=== PATIENT | female | born 1985 | race Two or more races ===

== ENCOUNTER 2020-07-11 13:02 | Inpatient (IN) | payer OTHER ==
[2020-07-11 13:52] VITALS: BMI 37.9
[2020-07-11] MEDS ORDERED: AMPICILLIN SODIUM 2 GM VIAL ONE (14:06)
[2020-07-11] MEDS ORDERED: AMPICILLIN - 2 GM in SODIUM CHLORIDE 100 ML IVPB ONE (14:15)
[2020-07-11 14:21] LABS: BASO % 0.3 % (0-2.0); EOS % 0.8 % (0-4.5); HEMATOCRIT 32.9 % (32.4-45.2); HEMOGLOBIN 11.2 GM/dL (10.7-15.3); LYMPH % 22.3 % (8-40); MCH 31.3 pg (25.7-33.7); MCHC 33.9 g/dl (32.0-36.0); MEAN CELL VOLUME 92.2 fl (80-96); MEAN PLT VOLUME 7.7 fl (7.5-11.1); MONO % 8.5 % (3.8-10.2); NEUT % 68.1 % (42.8-82.8); PLATELET COUNT 242 K/MM3 (134-434); RBC 3.57 M/mm3 (3.60-5.2); RDW 13.1 % (11.6-15.6); WHITE BLOOD COUNT 7.3 K/mm3 (4.0-10.0)
[2020-07-11 14:28] LABS: INR 0.96 (0.83-1.09); PROTHROMBIN TIME (PATIENT) 11.8 SEC (9.7-13.0)
[2020-07-11 14:43] LABS: POTASSIUM 4.1 mmol/L (3.5-5.1)
[2020-07-11 14:44] LABS: CALCIUM 8.7 mg/dL (8.5-10.1)
[2020-07-11] MEDS ORDERED: DEXTROSE 5%-LACTATED RINGERS 1,000 ML IV SCH (14:45)
[2020-07-11 14:48] LABS: CREATININE 0.7 mg/dL (0.55-1.3)
[2020-07-11] MEDS ORDERED: OXYTOCIN 30 UNITS in 0.9% NS 30 UNIT/500 ML INFUS.BAG IVPB ONE (15:28)
[2020-07-11] MEDS ORDERED: OXYTOCIN 30 UNITS in 0.9% NS 30 UNIT/500 ML INFUS.BAG IVPB SCH (16:00)
[2020-07-11] MEDS ORDERED: CITRIC ACID/SODIUM CITRATE 30 ML UNIT-DOSE CUP PO ONE (16:30)
[2020-07-11] MEDS ORDERED: AMPICILLIN SODIUM 1 GM VIAL ONE ×2 (18:22→22:04)
[2020-07-11] MEDS: AMPICILLIN - 1 GM in SODIUM CHLORIDE 100 ML IVPB SCH ×2 (18:25→22:15)
[2020-07-11] MEDS ORDERED: ELECTROLYTE-148 SOLN 500 ML IV ONE (21:20)
[2020-07-11] MEDS ORDERED: BUPIVACAINE HCL/PF 0.25% (2.5MG/ML) 10 ML VIAL ONE (21:36)
[2020-07-11] MEDS ORDERED: PCA PUMP NR ONE (21:40)
[2020-07-11] MEDS ORDERED: FENTANYL/BUPIVACAINE/NS/PF - PCEA - 50 ML DISP.SYRIN EP ONE (21:40)
[2020-07-11] MEDS ORDERED: NALOXONE HCL 0.4 MG/ML VIAL IVPUSH PRN (21:44)
[2020-07-11] MEDS ORDERED: FENTANYL/BUPIVACAINE/NS/PF - PCEA - 50 ML DISP.SYRIN EP SCH (21:45)
[2020-07-11] MEDS ORDERED: ELECTROLYTE-148 SOLN 1,000 ML IV SCH (21:50)
[2020-07-12] MEDS ORDERED: FENTANYL/BUPIVACAINE/NS/PF - PCEA - 50 ML DISP.SYRIN EP ONE (01:22)
[2020-07-12] MEDS ORDERED: AMPICILLIN SODIUM 1 GM VIAL ONE (01:27)
[2020-07-12] MEDS: AMPICILLIN - 1 GM in SODIUM CHLORIDE 100 ML IVPB SCH (02:15)
[2020-07-12] MEDS ORDERED: OXYTOCIN 20 UNITS in 0.9% NS 20 UNIT/1,000 ML INFUS.BAG IV ONE (02:33)
[2020-07-12] MEDS ORDERED: BISACODYL 10 MG SUPP.RECT RC PRN (03:10)
[2020-07-12] MEDS ORDERED: WITCH HAZEL 50% (TUCKS) 40 PAD/JAR PAD TP PRN (03:10)
[2020-07-12] MEDS ORDERED: BENZOCAINE 28 GM HEMORRHOIDAL OINTMENT TP PRN (03:10)
[2020-07-12] MEDS ORDERED: oxyCODONE HCL 5 MG TABLET PO PRN (03:10)
[2020-07-12] MEDS ORDERED: METHYLERGONOVINE MALEATE 0.2 MG/1 ML AMP IM PRN (03:10)
[2020-07-12] MEDS ORDERED: BENZOCAINE 20% 57 GM BOTTLE TP PRN (03:10)
[2020-07-12] MEDS ORDERED: OXYTOCIN 20 UNITS in 0.9% NS 20 UNIT/1,000 ML INFUS.BAG IV SCH (03:15)
[2020-07-12] MEDS: ACETAMINOPHEN 325 MG TABLET (FP) PO PRN ×4 (06:21→22:38)
[2020-07-12] MEDS: IBUPROFEN 600 MG TABLET (FP) PO PRN ×4 (06:22→22:37)
[2020-07-12] MEDS ORDERED: FLU VACCINE (FLULAVAL) PF 60 MCG/0.5 ML SYRINGE 2020-2021 IM ONE (10:00)
[2020-07-12] MEDS ORDERED: DIPHTH,PERTUSS(ACELL),TET 0.5 ML DISP.SYRIN IM ONE (10:00)
[2020-07-12] MEDS: PRENATAL VITAMINS W/ FOLIC ACID TABLET (FP) PO SCH (10:07)
[2020-07-13 02:30] VITALS: TEMP 98.1
[2020-07-13 08:53] LABS: BASO % 0.5 % (0-2.0); EOS % 1.2 % (0-4.5); HEMATOCRIT 28.1 % (32.4-45.2); HEMOGLOBIN 9.6 GM/dL (10.7-15.3); MCH 32.1 pg (25.7-33.7); MCHC 34.3 g/dl (32.0-36.0); MEAN CELL VOLUME 93.3 fl (80-96); MEAN PLT VOLUME 7.5 fl (7.5-11.1); MONO % 8.3 % (3.8-10.2); PLATELET COUNT 186 K/MM3 (134-434); RBC 3.01 M/mm3 (3.60-5.2); RDW 13.4 % (11.6-15.6)
[2020-07-13] MEDS: IBUPROFEN 600 MG TABLET (FP) PO PRN (09:33)
[2020-07-13] MEDS: PRENATAL VITAMINS W/ FOLIC ACID TABLET (FP) PO SCH (09:33)
[2020-07-13] MEDS: ACETAMINOPHEN 325 MG TABLET (FP) PO PRN (09:33)
[2020-07-13 13:14] VITALS: BP 115/62; PULSE 71
[2020-07-13] MEDS ORDERED: SENNOSIDES/DOCUSATE COMBO (SENNA PLUS) TABLET (UD) PO PRN (22:00)
== END 2020-07-13 19:05 | disposition home or self-care (01) | DRG 560 ==
LOC: JLDR 13:02 → J3W 07-12 05:50
PROVIDERS: ADMIT Obstetrics & Gynecology; ATTEND Obstetrics & Gynecology
PROC: 10907ZC Drainage of Amniotic Fluid, Therapeutic from Products of Conception, Via Natural or Artificial Opening (ICD-10-PCS; 2020-07-11)
PROC: 10E0XZZ Delivery of Products of Conception, External Approach (ICD-10-PCS; principal; 2020-07-12)
PROC: 0W8NXZZ Division of Female Perineum, External Approach (ICD-10-PCS; 2020-07-12)
DX: O41.03X0 Oligohydramnios, third trimester, not applicable or unspecified (principal); O99.824 Streptococcus B carrier state complicating childbirth; Z3A.39 39 weeks gestation of pregnancy; Z37.0 Single live birth; Z86.19 Personal history of other infectious and parasitic diseases
CPT/HCPCS: 36415; 59409; 80048; 85025; 85610; 85730; 86780; 86850; 86900; 86901; 87389; 90715; C9803; G0008; Q2036; U0003

== ENCOUNTER 2024-07-09 13:52 | Inpatient (IN) | payer OTHER ==
[2024-07-09 14:17] VITALS: BMI 33.9
[2024-07-09] MEDS ORDERED: POLYETHYLENE GLYCOL (HEALTHYLAX) 3350 17 GM PACKET PO PRN (16:25)
[2024-07-09] MEDS ORDERED: BENZONATATE 200 MG CAPSULE PO PRN (16:25)
[2024-07-09] MEDS ORDERED: guaiFENesin 600 MG TABLET.ER (FP) PO PRN (16:25)
[2024-07-09] MEDS ORDERED: IBUPROFEN 600 MG TABLET (FP) PO PRN (16:25)
[2024-07-09] MEDS ORDERED: BISMUTH SUBSALICYLATE 524 MG/30 ML PO PRN (16:25)
[2024-07-09] MEDS ORDERED: DICYCLOMINE HCL 10 MG CAPSULE PO PRN (16:25)
[2024-07-09] MEDS ORDERED: ONDANSETRON *ODT* 4 MG TABLET SL PRN (16:25)
[2024-07-09] MEDS ORDERED: IBUPROFEN 400 MG TABLET (FP) PO PRN (16:25)
[2024-07-09] MEDS ORDERED: MAG HYDROX/AL HYDROX/SIMETH 30 ML UNIT-DOSE CUP PO PRN (16:25)
[2024-07-09] MEDS ORDERED: LOPERAMIDE HCL 2 MG CAPSULE PO PRN (16:25)
[2024-07-09] MEDS ORDERED: BENZOCAINE/MENTHOL (CHLORASEPTIC ) LOZENGE MM PRN (16:25)
[2024-07-09] MEDS ORDERED: NALOXONE (NARCAN) HCL 4 MG/0.1 ML SPRAY NS PRN (16:25)
[2024-07-09] MEDS: chlordiazePOXIDE HCL 25 MG CAPSULE PO PRN (17:49)
[2024-07-09] MEDS: ACETAMINOPHEN 325 MG TABLET (FP) PO PRN (17:50)
[2024-07-09] MEDS: hydrOXYzine PAMOATE 25 MG CAPSULE (FP) PO PRN (18:32)
[2024-07-09] MEDS: METHOCARBAMOL 500 MG TABLET PO PRN (18:32)
[2024-07-09] MEDS: MELATONIN 5 MG TABLETS PO SCH (22:10)
[2024-07-09] MEDS: THIAMINE 100 MG TABLET PO SCH (22:11)
[2024-07-09] MEDS: chlordiazePOXIDE HCL 25 MG CAPSULE PO SCH (22:11)
[2024-07-10] MEDS: PRENATAL VITAMINS W/ FOLIC ACID TABLET (FP) PO SCH (10:23)
[2024-07-10] MEDS: SERTRALINE HCL 50 MG TABLET (FP) PO SCH (10:23)
[2024-07-10] MEDS ORDERED: amLODIPine BESYLATE 5 MG TABLET (FP) PO SCH (11:45)
[2024-07-10] MEDS: propRANOLol HCL 10 MG TABLET PO SCH (13:31)
[2024-07-10 14:18] LABS: HEMATOCRIT 36.8 % (32.4-45.2); HEMOGLOBIN 12.5 GM/dL (10.7-15.3); MCH 31.4 pg (25.7-33.7); MCHC 33.9 g/dl (32.0-36.0); MEAN CELL VOLUME 92.8 fl (80-96); PLATELET COUNT 219 10^3/uL (134-434); RBC 3.97 M/mm3 (3.60-5.2); RDW 15.6 % (11.6-15.6); WHITE BLOOD COUNT 5.3 K/mm3 (4.0-10.0)
[2024-07-10 15:01] LABS: CHLORIDE 105 mmol/L (98-107); SODIUM 137 mmol/L (136-145)
[2024-07-10 15:14] LABS: ANION GAP 8 mmol/L (4-13); BLOOD UREA NITROGEN 12.9 mg/dL (7-18); CALCIUM 9.7 mg/dL (8.5-10.1); CO2 24 mmol/L (21-32); GLUCOSE,RANDOM 109 mg/dL (74-106)
[2024-07-10 15:15] LABS: ALBUMIN 3.6 g/dl (3.4-5.0)
[2024-07-10 15:16] LABS: SGPT/ALT 81 U/L (13-61)
[2024-07-10 15:17] LABS: ALK PHOS 93 U/L (45-117); CREATININE 0.8 mg/dL (0.55-1.3); SGOT/AST 49 U/L (15-37)
[2024-07-10 15:18] LABS: BILIRUBIN,TOTAL 0.7 mg/dL (0.2-1); TOT PROT 7.5 g/dl (6.4-8.2)
[2024-07-11] MEDS: chlordiazePOXIDE HCL 25 MG CAPSULE PO SCH (05:44)
[2024-07-11] MEDS: MAGNESIUM HYDROX 2400MG/30ML ORAL SUSPENSION 30 ML CUP PO PRN (10:18)
[2024-07-11] MEDS: DOCUSATE SODIUM 100 MG CAPSULE (FP) PO SCH (14:02)
[2024-07-11] MEDS: SENNOSIDES 8.6MG TABLET (FP) PO SCH (22:33)
[2024-07-12] MEDS ORDERED: chlordiazePOXIDE HCL 10 MG CAPSULE PO PRN
[2024-07-12] MEDS: chlordiazePOXIDE HCL 10 MG CAPSULE PO SCH (05:55)
[2024-07-12] MEDS: BISACODYL 5 MG TABLET.DR (FP) PO ONE (12:05)
[2024-07-12] MEDS: MINERAL OIL ENEMA 133 ML ENEMA RC ONE (12:05)
[2024-07-13] MEDS: chlordiazePOXIDE HCL 10 MG CAPSULE PO SCH (05:56)
[2024-07-14] MEDS: chlordiazePOXIDE HCL 10 MG CAPSULE PO ONE (05:55)
[2024-07-14 09:53] VITALS: BP 127/71; PULSE 95; RESP 17; TEMP 97.8
[2024-07-14] MEDS: NALOXONE (NYS OPIOID OVERDOSE PROGRAM) 4 MG/0.1 ML SPRAY NS SCH (12:00)
== END 2024-07-14 11:30 | disposition home or self-care (01) | DRG 774 ==
LOC: YASAS 13:52 → Y6N 16:45
PROVIDERS: ADMIT Allergy & Immunology; ATTEND Surgery
PROC: HZ2ZZZZ Detoxification Services for Substance Abuse Treatment (ICD-10-PCS; principal; 2024-07-09)
DX: F10.230 Alcohol dependence with withdrawal, uncomplicated (principal); F14.20 Cocaine dependence, uncomplicated; F12.20 Cannabis dependence, uncomplicated; F19.282 Other psychoactive substance dependence with psychoactive substance-induced sleep disorder; F19.280 Other psychoactive substance dependence with psychoactive substance-induced anxiety disorder; F19.24 Other psychoactive substance dependence with psychoactive substance-induced mood disorder; F32.9 Major depressive disorder, single episode, unspecified; F41.9 Anxiety disorder, unspecified; K59.00 Constipation, unspecified; R03.0 Elevated blood-pressure reading, without diagnosis of hypertension; Z87.891 Personal history of nicotine dependence
CPT/HCPCS: 36415; 80053; 80305; 80307; 81025; 85027; 86780; 93005; 93010